=== PATIENT | male | born 1960 | race Caucasian/White ===

== ENCOUNTER 2016-11-24 21:57 | Inpatient (IN) | payer MEDICARE ==
[~2016-11-24] VITALS: Ht 172.7 cm; Wt 76.6 kg
[~2016-11-24 21:57] MED LIST: ALPR0.25 PO; AMLO10TA2 PO; AMLO2.5T2 PO; ASPI-621 PO; ASPI-624 PO; ATOR10TA PO; ATOR20TA PO; ATOR20TA9 PO; Amitriptyline Hcl PO; CALC667C PO; CALC667C3 PO; CARV-39 PO; CLOP75TA22 PO; DIAZ10TA4 PO; DIAZ5TAB PO; DIAZ5TAB4 PO; ERGO500017 PO; FURO40TA6 PO; GABA100C PO; GABA300C PO; HYDR-3341 PO; HYDR-3343 PO; INSU100C SQ-INSULIN; INSU100V8 SQ; IPRA3AMP NPPB; LISI-170 PO; LOSA50TA2 PO; METO-95 PO; METO1TAB6 PO; METO50TA82 PO; MINOXIDIL PO; MIRT15TA PO; NICO1PAT4 TD; OXYC-229 PO; OXYC-302 PO; OXYC10TA6 PO; Oxycodone Hcl PO; PANT40TA3 PO; SEVE800T PO; TEMA15CA6 PO; TIOT18CA INH; TRAM-28 PO; TRAM50TA2 PO
[2016-11-24 22:51] LABS: ASPARTATE AMINO TRANSFERASE 24 U/L (15-37); BLOOD UREA NITROGEN 53 mg/dL (7-18)
[2016-11-24] MEDS ORDERED: CEFTAROLINE 600 MG in SODIUM CHLORIDE 0.9% 100 ML IV ONE (23:00)
[2016-11-24] MEDS ORDERED: ONDANSETRON 2MG/ML, 2ML ONE (23:23)
[2016-11-24] MEDS ORDERED: MORPHINE SULFATE 4 MG/ML, 1ML ONE (23:23)
[2016-11-24] MEDS ORDERED: SODIUM CHLORIDE 0.9% 1,000ML IVBOLUS ONE (23:30)
[2016-11-24] MEDS ORDERED: MORPHINE SULFATE 4 MG/ML, 1ML IVPush PRN (23:30)
[2016-11-24] MEDS ORDERED: ONDANSETRON 2MG/ML, 2ML IVPush ONE (23:30)
[2016-11-24] MEDS ORDERED: SODIUM CHLORIDE 0.9% 1,000 ML IV ONE (23:46)
[2016-11-25] MEDS ORDERED: ONDANSETRON 2MG/ML, 2ML IVPush PRN
[2016-11-25] MEDS ORDERED: MORPHINE SULFATE 4 MG/ML, 1ML IVPush PRN
[2016-11-25] MEDS ORDERED: ERGOCALCIFEROL 50,000 UNIT CAPSULE PO SCH (01:00)
[2016-11-25] MEDS ORDERED: BISACODYL 10 MG SUPP PR PRN (01:00)
[2016-11-25] MEDS ORDERED: POLYETHYLENE GLYCOL 17 GM PACKET PO PRN (01:00)
[2016-11-25] MEDS: NICOTINE 21 MG/24 HR PATCH.TD24 TD SCH (01:00)
[2016-11-25] MEDS ORDERED: TEMPLATE NON-FORMULARY MED. (Insulin Lispro** (Humalog**) 0 UNITS) SQ-INSULIN SCH (01:00)
[2016-11-25] MEDS ORDERED: ONDANSETRON 2MG/ML, 2ML IVP PRN (01:00)
[2016-11-25] MEDS: HEPARIN 5,000 UNITS/ML, 1ML SQ SCH ×4 (01:00→17:00)
[2016-11-25 01:30] VITALS: BP 158/75
[2016-11-25] MEDS: MORPHINE SULFATE 4 MG/ML, 1ML IVPush PRN ×5 (01:31→20:55)
[2016-11-25] MEDS: CALCIUM ACETATE 667 MG CAPSULE PO SCH ×4 (04:25→21:35)
[2016-11-25] MEDS: ATORVASTATIN 10 MG TABLET PO SCH ×2 (04:25→21:36)
[2016-11-25 06:34] VITALS: BP 133/68
[2016-11-25 06:56] LABS: ASPARTATE AMINO TRANSFERASE 18 U/L (15-37); BLOOD UREA NITROGEN 58 mg/dL (7-18)
[2016-11-25] MEDS: INSULIN ASPART 100 UNITS/ML, 3ML PEN MEDIUM DOSE SS SQ-INSULIN SCH ×4 (07:00→21:36)
[2016-11-25] MEDS: SODIUM CHLORIDE FLUSH 10ML SYR IVF SCH ×2 (07:53→20:56)
[2016-11-25] MEDS: SENNA/DOCUSATE TABLET PO SCH (07:55)
[2016-11-25] MEDS: GABAPENTIN 100 MG CAPSULE PO SCH ×2 (07:55→21:35)
[2016-11-25] MEDS: DIAZEPAM 5 MG TABLET PO SCH (08:04)
[2016-11-25] MEDS: ASPIRIN 81 MG TABLET EC PO SCH (08:06)
[2016-11-25] MEDS ORDERED: INSULIN DETEMIR 100 UNITS/ML, PEN SQ-INSULIN SCH (09:00)
[2016-11-25] MEDS: METOPROLOL TARTRATE 50 MG TABLET PO SCH ×2 (09:00→21:36)
[2016-11-25] MEDS: AMLODIPINE 5 MG TABLET PO SCH (09:00)
[2016-11-25] MEDS ORDERED: ARANESP 100 MCG/ML **ESRD SQ SCH (11:30)
[2016-11-25 12:05] VITALS: BP 147/71
[2016-11-25] MEDS: ACETAMINOPHEN 325 MG TABLET PO PRN (14:57)
[2016-11-25] MEDS: CEFTAROLINE 200 MG in SODIUM CHLORIDE 0.9% 100 ML IV SCH (17:34)
[2016-11-25] MEDS: MUPIROCIN OINT 2%, 22GM TP SCH (18:00)
[2016-11-25 19:55] VITALS: BP 153/65
[2016-11-26] MEDS: CEFTAROLINE 200 MG in SODIUM CHLORIDE 0.9% 100 ML IV SCH (00:47)
[2016-11-26] MEDS: HEPARIN 5,000 UNITS/ML, 1ML SQ SCH ×3 (00:48→16:55)
[2016-11-26] MEDS: NICOTINE 21 MG/24 HR PATCH.TD24 TD SCH (00:48)
[2016-11-26 01:15] VITALS: BP 164/68
[2016-11-26] MEDS: MORPHINE SULFATE 4 MG/ML, 1ML IVPush PRN (03:16)
[2016-11-26] MEDS: ASPIRIN 81 MG TABLET EC PO SCH (06:01)
[2016-11-26] MEDS: MUPIROCIN OINT 2%, 22GM TP SCH ×2 (06:01→18:36)
[2016-11-26] MEDS: HYDROcodone/APAP 5/325 TABLET PO PRN ×2 (06:08→22:38)
[2016-11-26 06:15] LABS: BLOOD UREA NITROGEN 32 mg/dL (7-18)
[2016-11-26 06:51] LABS: DIFF TOTAL CELLS COUNTED 100 CELL DIFF
[2016-11-26 06:53] VITALS: BP 112/65
[2016-11-26 06:54] LABS: VERIFY COUNTS? YES
[2016-11-26 06:56] LABS: ANISOCYTOSIS 1+
[2016-11-26] MEDS: INSULIN ASPART 100 UNITS/ML, 3ML PEN MEDIUM DOSE SS SQ-INSULIN SCH ×4 (08:16→20:56)
[2016-11-26] MEDS: SODIUM CHLORIDE FLUSH 10ML SYR IVF SCH ×2 (09:05→20:56)
[2016-11-26] MEDS: AMLODIPINE 5 MG TABLET PO SCH (09:06)
[2016-11-26] MEDS: METOPROLOL TARTRATE 50 MG TABLET PO SCH ×2 (09:06→20:50)
[2016-11-26] MEDS: GABAPENTIN 100 MG CAPSULE PO SCH ×2 (09:06→20:50)
[2016-11-26] MEDS: CALCIUM ACETATE 667 MG CAPSULE PO SCH ×3 (09:06→20:50)
[2016-11-26] MEDS: SENNA/DOCUSATE TABLET PO SCH (09:07)
[2016-11-26] MEDS: DIAZEPAM 5 MG TABLET PO SCH (10:25)
[2016-11-26 14:14] VITALS: BP 116/70
[2016-11-26] MEDS: AMPICILLIN/SULBACTAM 3 GM in SODIUM CHLORIDE 0.9% 100 ML IV SCH ×2 (16:55→22:37)
[2016-11-26 19:58] VITALS: BP 117/59
[2016-11-26] MEDS: ACETAMINOPHEN 325 MG TABLET PO PRN (20:50)
[2016-11-26] MEDS: ATORVASTATIN 10 MG TABLET PO SCH (20:50)
[2016-11-27 00:49] VITALS: BP 110/56
[2016-11-27] MEDS: HEPARIN 5,000 UNITS/ML, 1ML SQ SCH ×3 (05:08→22:00)
[2016-11-27] MEDS: AMPICILLIN/SULBACTAM 3 GM in SODIUM CHLORIDE 0.9% 100 ML IV SCH ×2 (05:08→14:00)
[2016-11-27] MEDS: NICOTINE 21 MG/24 HR PATCH.TD24 TD SCH (05:12)
[2016-11-27] MEDS: MORPHINE SULFATE 4 MG/ML, 1ML IVPush PRN ×2 (05:18→15:45)
[2016-11-27 05:44] LABS: BLOOD UREA NITROGEN 45 mg/dL (7-18)
[2016-11-27] MEDS: ASPIRIN 81 MG TABLET EC PO SCH (06:02)
[2016-11-27] MEDS: MUPIROCIN OINT 2%, 22GM TP SCH ×2 (06:02→18:42)
[2016-11-27 07:30] VITALS: BP 99/49
[2016-11-27] MEDS: METOPROLOL TARTRATE 50 MG TABLET PO SCH ×2 (09:00→20:01)
[2016-11-27] MEDS: SENNA/DOCUSATE TABLET PO SCH (09:00)
[2016-11-27] MEDS: AMLODIPINE 5 MG TABLET PO SCH (09:00)
[2016-11-27] MEDS: DIAZEPAM 5 MG TABLET PO SCH (09:54)
[2016-11-27] MEDS: INSULIN ASPART 100 UNITS/ML, 3ML PEN MEDIUM DOSE SS SQ-INSULIN SCH ×4 (10:00→20:09)
[2016-11-27] MEDS: INSULIN DETEMIR 100 UNITS/ML, PEN SQ-INSULIN SCH (10:01)
[2016-11-27] MEDS: SODIUM CHLORIDE FLUSH 10ML SYR IVF SCH ×2 (10:01→20:02)
[2016-11-27] MEDS: GABAPENTIN 100 MG CAPSULE PO SCH ×3 (10:01→20:01)
[2016-11-27] MEDS: CALCIUM ACETATE 667 MG CAPSULE PO SCH ×3 (10:01→20:01)
[2016-11-27] MEDS: HYDROcodone/APAP 5/325 TABLET PO PRN ×2 (11:53→20:01)
[2016-11-27 14:45] VITALS: BP 97/49
[2016-11-27 15:50] VITALS: BP 110/54
[2016-11-27 19:07] VITALS: BP 135/66
[2016-11-27] MEDS: ATORVASTATIN 10 MG TABLET PO SCH (20:01)
[2016-11-28 01:57] VITALS: BP 126/56
[2016-11-28] MEDS: HYDROcodone/APAP 5/325 TABLET PO PRN ×3 (02:45→20:09)
[2016-11-28] MEDS: ASPIRIN 81 MG TABLET EC PO SCH (05:21)
[2016-11-28] MEDS: HEPARIN 5,000 UNITS/ML, 1ML SQ SCH ×2 (05:21→17:09)
[2016-11-28] MEDS: MUPIROCIN OINT 2%, 22GM TP SCH ×2 (05:21→17:09)
[2016-11-28] MEDS: NICOTINE 21 MG/24 HR PATCH.TD24 TD SCH (05:21)
[2016-11-28 06:41] LABS: BLOOD UREA NITROGEN 36 mg/dL (7-18)
[2016-11-28] MEDS: INSULIN ASPART 100 UNITS/ML, 3ML PEN MEDIUM DOSE SS SQ-INSULIN SCH ×4 (07:00→19:51)
[2016-11-28 07:59] VITALS: BP 152/66
[2016-11-28] MEDS: SENNA/DOCUSATE TABLET PO SCH (09:00)
[2016-11-28] MEDS: INSULIN DETEMIR 100 UNITS/ML, PEN SQ-INSULIN SCH (09:00)
[2016-11-28] MEDS: DIAZEPAM 5 MG TABLET PO SCH (09:22)
[2016-11-28] MEDS: AMLODIPINE 5 MG TABLET PO SCH (09:23)
[2016-11-28] MEDS: CALCIUM ACETATE 667 MG CAPSULE PO SCH ×3 (09:23→20:08)
[2016-11-28] MEDS: METOPROLOL TARTRATE 50 MG TABLET PO SCH ×2 (09:23→20:09)
[2016-11-28] MEDS: GABAPENTIN 100 MG CAPSULE PO SCH ×3 (09:24→20:08)
[2016-11-28] MEDS: SODIUM CHLORIDE FLUSH 10ML SYR IVF SCH ×2 (09:27→20:08)
[2016-11-28 10:59] LABS: HEP B SURF. AB 217.6 mIU/mL (0.0-10.0)
[2016-11-28] MEDS: MORPHINE SULFATE 4 MG/ML, 1ML IVPush PRN ×4 (11:18→23:32)
[2016-11-28 13:34] VITALS: BP 115/56
[2016-11-28] MEDS ORDERED: AMPICILLIN/SULBACTAM 3 GM in SODIUM CHLORIDE 0.9% 100 ML IV SCH ×2 (14:00→14:56)
[2016-11-28] MEDS: ATORVASTATIN 10 MG TABLET PO SCH (20:09)
[2016-11-28 20:31] VITALS: BP 160/70
[2016-11-29 01:50] VITALS: BP 127/65
[2016-11-29] MEDS: HEPARIN 5,000 UNITS/ML, 1ML SQ SCH ×2 (03:07→09:00)
[2016-11-29] MEDS: HYDROcodone/APAP 5/325 TABLET PO PRN ×2 (03:07→12:05)
[2016-11-29] MEDS: ASPIRIN 81 MG TABLET EC PO SCH (05:05)
[2016-11-29] MEDS: MUPIROCIN OINT 2%, 22GM TP SCH (05:05)
[2016-11-29] MEDS: NICOTINE 21 MG/24 HR PATCH.TD24 TD SCH (05:05)
[2016-11-29 06:45] VITALS: BP 130/62
[2016-11-29] MEDS: INSULIN ASPART 100 UNITS/ML, 3ML PEN MEDIUM DOSE SS SQ-INSULIN SCH (07:00)
[2016-11-29] MEDS: AMLODIPINE 5 MG TABLET PO SCH (09:00)
[2016-11-29] MEDS: INSULIN DETEMIR 100 UNITS/ML, PEN SQ-INSULIN SCH (09:00)
[2016-11-29] MEDS: CALCIUM ACETATE 667 MG CAPSULE PO SCH (09:00)
[2016-11-29] MEDS: SENNA/DOCUSATE TABLET PO SCH (09:00)
[2016-11-29] MEDS: SODIUM CHLORIDE FLUSH 10ML SYR IVF SCH (09:00)
[2016-11-29] MEDS: GABAPENTIN 100 MG CAPSULE PO SCH (09:00)
[2016-11-29] MEDS: METOPROLOL TARTRATE 50 MG TABLET PO SCH (09:00)
[2016-11-29] MEDS ORDERED: AMPI3VIA IV (09:56)
== END 2016-11-29 12:10 | DRG 871 ==
LOC: ED 22:25 → EDIP 23:46 → 4WST 11-25 00:39
PROVIDERS: ADMIT Internal Medicine; ATTEND Internal Medicine
PROC: 5A1D60Z (ICD-10-PCS; principal; 2016-11-25)
DX: A41.9 Sepsis, unspecified organism (principal); N18.6 End stage renal disease; L03.115 Cellulitis of right lower limb; J96.10 Chronic respiratory failure, unspecified whether with hypoxia or hypercapnia; E44.0 Moderate protein-calorie malnutrition; E87.1 Hypo-osmolality and hyponatremia; I13.2 Hypertensive heart and chronic kidney disease with heart failure and with stage 5 chronic kidney disease, or end stage renal disease; D64.9 Anemia, unspecified; E11.22 Type 2 diabetes mellitus with diabetic chronic kidney disease; E11.42 Type 2 diabetes mellitus with diabetic polyneuropathy; E78.5 Hyperlipidemia, unspecified; F17.200 Nicotine dependence, unspecified, uncomplicated; F41.1 Generalized anxiety disorder; I25.10 Atherosclerotic heart disease of native coronary artery without angina pectoris; I50.9 Heart failure, unspecified; B95.0 Streptococcus, group A, as the cause of diseases classified elsewhere; J44.9 Chronic obstructive pulmonary disease, unspecified; R62.7 Adult failure to thrive; E04.1 Nontoxic single thyroid nodule; G89.29 Other chronic pain; M19.90 Unspecified osteoarthritis, unspecified site; R26.2 Difficulty in walking, not elsewhere classified; Z79.4 Long term (current) use of insulin; Z80.1 Family history of malignant neoplasm of trachea, bronchus and lung; Z86.73 Personal history of transient ischemic attack (TIA), and cerebral infarction without residual deficits; Z91.14 Patient's other noncompliance with medication regimen; Z99.2 Dependence on renal dialysis; Z68.25 Body mass index [BMI] 25.0-25.9, adult; Z88.7 Allergy status to serum and vaccine; Z98.49 Cataract extraction status, unspecified eye; Z89.419 Acquired absence of unspecified great toe; Z82.3 Family history of stroke; Z79.82 Long term (current) use of aspirin; Z79.899 Other long term (current) drug therapy; Z87.01 Personal history of pneumonia (recurrent)
CPT/HCPCS: 36415; 71010; 80048; 80053; 82962; 83036; 83605; 83735; 84145; 85025; 86704; 86706; 87040; 87147; 87181; 87340; 93922; 96365; 96375; J0295; J0712; J0882; J1644; J1815; J2405; J7030

== ENCOUNTER 2017-01-11 23:38 | Emergency (ER) | payer MEDICARE ==
[~2017-01-11] VITALS: Ht 172.7 cm; Wt 74.0 kg
[~2017-01-11 23:38] MED LIST changes: +AMPI3VIA IV
[2017-01-12] MEDS ORDERED: GABAPENTIN 300 MG CAPSULE PO ONE
[2017-01-12] MEDS ORDERED: OXYcodone/APAP 10/325MG TABLET PO ONE
[2017-01-12] MEDS ORDERED: OXYC10TA6 PO (00:08)
[2017-01-12] MEDS ORDERED: OXYcodone/APAP 10/325MG TABLET ONE (00:09)
[2017-01-12 00:20] LABS: BLOOD UREA NITROGEN 31 mg/dL (7-18)
[2017-01-12 01:17] VITALS: BP 198/84
== END 2017-01-12 01:39 | disposition home or self-care (01) ==
LOC: ED 01-12 01:21
DX: E11.40 Type 2 diabetes mellitus with diabetic neuropathy, unspecified (principal); I11.0 Hypertensive heart disease with heart failure; J44.9 Chronic obstructive pulmonary disease, unspecified; N19 Unspecified kidney failure; M19.90 Unspecified osteoarthritis, unspecified site; Z86.73 Personal history of transient ischemic attack (TIA), and cerebral infarction without residual deficits; Z99.2 Dependence on renal dialysis
CPT/HCPCS: 36415; 80048; 82040; 85025; 99284

== ENCOUNTER 2017-02-02 03:28 | Inpatient (IN) | payer MEDICARE ==
[~2017-02-02] VITALS: Ht 172.7 cm; Wt 70.1 kg
[2017-02-02] MEDS ORDERED: PROPOFOL 100 ML IV PRN (03:40)
[2017-02-02] MEDS: MIDAZOLAM 1 MG/ML, 5ML IVP PRN ×3 (04:27→05:41)
[2017-02-02 04:29] LABS: ABG COLLECTION SITE LEFT BRACHIAL
[2017-02-02 04:43] LABS: ASPARTATE AMINO TRANSFERASE 10 U/L (15-37); BLOOD UREA NITROGEN 51 mg/dL (7-18)
[2017-02-02 04:49] LABS: IS PT STATUS REG ER OR PRE ER? YES
[2017-02-02] MEDS ORDERED: ROCURONIUM 10 MG/ML IVPush ONE (05:00)
[2017-02-02] MEDS ORDERED: MIDAZOLAM 1 MG/ML, 5ML IVP ONE (05:00)
[2017-02-02] MEDS ORDERED: ETOMIDATE 20 MG/10 ML IV ONE (05:00)
[2017-02-02] MEDS ORDERED: PIPERACILLIN/TAZO/PMX 3.375GM 50 ML IVPB ONE (05:00)
[2017-02-02] MEDS ORDERED: SODIUM CHLORIDE 0.9% 1,000ML IVBOLUS ONE (05:00)
[2017-02-02] MEDS ORDERED: PIPERACILLIN/TAZO/PMX 3.375GM 50 ML ONE (05:08)
[2017-02-02] MEDS ORDERED: MIDAZOLAM 1 MG/ML, 5ML ONE ×4 (05:11→15:42)
[2017-02-02] MEDS ORDERED: SODIUM CHLORIDE 0.9% 1,000 ML IV SCH ×2 (05:16→08:30)
[2017-02-02] MEDS ORDERED: ACETAMINOPHEN 325 MG TABLET PO PRN (05:30)
[2017-02-02] MEDS ORDERED: DOCUSATE 100 MG CAPSULE PO PRN ×2 (05:30→20:00)
[2017-02-02] MEDS ORDERED: POLYETHYLENE GLYCOL 17 GM PACKET PO PRN ×2 (05:30→20:00)
[2017-02-02] MEDS ORDERED: ONDANSETRON 2MG/ML, 2ML IVPush PRN (05:30)
[2017-02-02] MEDS ORDERED: ALBUTEROL/IPRATROPIUM 2.5MG/0.5MG, 3 ML ONE (05:31)
[2017-02-02] MEDS ORDERED: MIDAZOLAM 1 MG/ML, 5ML IVPush ONE (06:00)
[2017-02-02] MEDS: methylPREDNISolone SOD SUCC 125 MG/2 ML IVPush SCH ×3 (06:23→16:53)
[2017-02-02] MEDS: CEFTRIAXONE PMX 1GM/50ML 50 ML IV SCH (06:23)
[2017-02-02] MEDS: HEPARIN 5,000 UNITS/ML, 1ML SQ SCH ×3 (06:24→20:40)
[2017-02-02] MEDS ORDERED: ALBUTEROL/IPRATROPIUM 2.5MG/0.5MG, 3 ML NPPB SCH (07:00)
[2017-02-02] MEDS: DOXYCYCLINE 100 MG in DEXTROSE 5% 250 ML IV SCH ×2 (07:16→20:37)
[2017-02-02] MEDS: PROPOFOL 100 ML IV PRN ×4 (07:22→20:39)
[2017-02-02] MEDS: ALBUTEROL/IPRATROPIUM 2.5MG/0.5MG, 3 ML INLINE SCH ×5 (07:35→23:30)
[2017-02-02] MEDS: INSULIN ASPART 100 UNITS/ML, PEN SQ-INSULIN SCH ×4 (08:36→21:10)
[2017-02-02] MEDS: OXYcodone IR 5MG TABLET PO PRN ×2 (08:36→18:22)
[2017-02-02] MEDS: GABAPENTIN 100 MG CAPSULE PO SCH ×2 (08:37→20:41)
[2017-02-02] MEDS: INSULIN DETEMIR 100 UNITS/ML, PEN SQ-INSULIN SCH (08:37)
[2017-02-02] MEDS: DIAZEPAM 5 MG TABLET PO SCH (08:37)
[2017-02-02] MEDS: AMLODIPINE 5 MG TABLET PO SCH (08:38)
[2017-02-02] MEDS: SENNA/DOCUSATE TABLET PO SCH (08:38)
[2017-02-02] MEDS: METOPROLOL TARTRATE 50 MG TABLET PO SCH ×2 (08:38→20:38)
[2017-02-02] MEDS: CALCIUM ACETATE 667 MG CAPSULE PO SCH ×3 (09:00→20:40)
[2017-02-02] MEDS ORDERED: FAMOTIDINE 20 MG/2 ML IVPush SCH (09:00)
[2017-02-02] MEDS: RISPERIDONE 1 MG/ML ORAL SOLN NG SCH ×2 (09:01→20:41)
[2017-02-02] MEDS ORDERED: SENNOSIDES 8.8 MG/5 ML ORAL SOL NG PRN ×2 (11:30→20:00)
[2017-02-02] MEDS ORDERED: FENTANYL PF 100 MCG/2ML IVPush PRN (11:30)
[2017-02-02] MEDS ORDERED: SENNA/DOCUSATE TABLET NG PRN ×2 (11:30→20:00)
[2017-02-02] MEDS ORDERED: LACTULOSE 20 GM/30 ML UDC NG PRN ×2 (11:30→20:00)
[2017-02-02] MEDS ORDERED: BISACODYL 10 MG SUPP PR PRN ×2 (11:30→20:00)
[2017-02-02] MEDS ORDERED: LIDOCAINE-MPF 1%, 2ML ENDO PRN (11:30)
[2017-02-02] MEDS ORDERED: FAMOTIDINE 20 MG/2 ML IV SCH (11:30)
[2017-02-02] MEDS ORDERED: PHARMACY MAY ADJ FOR RENAL FX MC SCH ×2 (11:30→20:00)
[2017-02-02] MEDS ORDERED: ROCURONIUM 10 MG/ML ONE (15:42)
[2017-02-02] MEDS ORDERED: ETOMIDATE 40 MG/20 ML ONE (15:42)
[2017-02-02] MEDS ORDERED: PROPOFOL 10 MG/ML, 20ML ONE (15:42)
[2017-02-02] MEDS: ATORVASTATIN 10 MG TABLET PO SCH (20:38)
[2017-02-02] MEDS: FAMOTIDINE 20 MG/2 ML IVPush SCH (20:40)
[2017-02-02] MEDS: LORazepam 2 MG/ML, 1ML IVPush PRN (20:41)
[2017-02-03] MEDS: methylPREDNISolone SOD SUCC 125 MG/2 ML IVPush SCH ×5 (00:03→22:14)
[2017-02-03] MEDS: OXYcodone IR 5MG TABLET PO PRN (01:31)
[2017-02-03] MEDS: PROPOFOL 100 ML IV PRN ×4 (01:31→22:52)
[2017-02-03] MEDS: ALBUTEROL/IPRATROPIUM 2.5MG/0.5MG, 3 ML INLINE SCH ×7 (03:30→23:30)
[2017-02-03 04:00] VITALS: BP 132/63
[2017-02-03 04:16] LABS: ABG COLLECTION SITE RIGHT RADIAL; COLLATERAL CIRCULATION TESTING NORMAL
[2017-02-03] MEDS: INSULIN ASPART 100 UNITS/ML, PEN SQ-INSULIN SCH ×5 (04:24→22:13)
[2017-02-03 04:32] LABS: BLOOD UREA NITROGEN 34 mg/dL (7-18)
[2017-02-03 04:35] LABS: ASPARTATE AMINO TRANSFERASE 11 U/L (15-37)
[2017-02-03] MEDS: morphine SULFATE 10 MG/ML, 1ML IVPush PRN ×4 (05:11→20:12)
[2017-02-03] MEDS: CEFTRIAXONE PMX 1GM/50ML 50 ML IV SCH (06:18)
[2017-02-03] MEDS: HEPARIN 5,000 UNITS/ML, 1ML SQ SCH ×3 (06:18→22:14)
[2017-02-03] MEDS: DIAZEPAM 5 MG TABLET PO SCH (08:20)
[2017-02-03] MEDS: DOXYCYCLINE 100 MG in DEXTROSE 5% 250 ML IV SCH ×2 (08:20→20:12)
[2017-02-03] MEDS: RISPERIDONE 1 MG/ML ORAL SOLN NG SCH ×2 (08:21→08:46)
[2017-02-03] MEDS: METOPROLOL TARTRATE 50 MG TABLET PO SCH ×2 (08:21→22:15)
[2017-02-03] MEDS: CALCIUM ACETATE 667 MG CAPSULE PO SCH ×3 (08:21→22:14)
[2017-02-03] MEDS: SENNA/DOCUSATE TABLET PO SCH (08:21)
[2017-02-03] MEDS: GABAPENTIN 100 MG CAPSULE PO SCH ×2 (08:21→22:14)
[2017-02-03] MEDS: AMLODIPINE 5 MG TABLET PO SCH (08:21)
[2017-02-03] MEDS: NICOTINE 14MG/24 HR PATCH.TD24 TD SCH (10:50)
[2017-02-03] MEDS ORDERED: hydrALAzine 20 MG/ML, 1ML IV PRN (11:00)
[2017-02-03] MEDS ORDERED: LABETALOL 5MG/ML, 20ML IVPush PRN (11:00)
[2017-02-03] MEDS: INSULIN DETEMIR 100 UNITS/ML, PEN SQ-INSULIN SCH (11:53)
[2017-02-03] MEDS: LORazepam 2 MG/ML, 1ML IVPush PRN (16:53)
[2017-02-03] MEDS: FAMOTIDINE 20 MG/2 ML IVPush SCH (22:14)
[2017-02-03] MEDS: ATORVASTATIN 10 MG TABLET PO SCH (22:15)
[2017-02-04] MEDS: OXYcodone IR 5MG TABLET PO PRN ×4 (00:24→17:54)
[2017-02-04] MEDS: PROPOFOL 100 ML IV PRN ×5 (02:23→19:50)
[2017-02-04] MEDS: ALBUTEROL/IPRATROPIUM 2.5MG/0.5MG, 3 ML INLINE SCH ×5 (02:54→22:40)
[2017-02-04 04:25] LABS: ABG COLLECTION SITE LEFT RADIAL; COLLATERAL CIRCULATION TESTING NORMAL
[2017-02-04 04:37] VITALS: BP 148/69
[2017-02-04 04:39] LABS: BLOOD UREA NITROGEN 41 mg/dL (7-18)
[2017-02-04] MEDS: methylPREDNISolone SOD SUCC 125 MG/2 ML IVPush SCH ×4 (06:37→23:03)
[2017-02-04] MEDS: CEFTRIAXONE PMX 1GM/50ML 50 ML IV SCH (06:37)
[2017-02-04] MEDS: INSULIN ASPART 100 UNITS/ML, PEN SQ-INSULIN SCH ×4 (06:38→23:03)
[2017-02-04] MEDS: DOXYCYCLINE 100 MG in DEXTROSE 5% 250 ML IV SCH (06:42)
[2017-02-04] MEDS: SENNA/DOCUSATE TABLET PO SCH (08:50)
[2017-02-04] MEDS: METOPROLOL TARTRATE 50 MG TABLET PO SCH ×2 (08:50→21:40)
[2017-02-04] MEDS: DIAZEPAM 5 MG TABLET PO SCH (08:51)
[2017-02-04] MEDS: AMLODIPINE 5 MG TABLET PO SCH (08:51)
[2017-02-04] MEDS: CALCIUM ACETATE 667 MG CAPSULE PO SCH ×3 (08:51→21:40)
[2017-02-04] MEDS: GABAPENTIN 100 MG CAPSULE PO SCH ×2 (08:51→21:40)
[2017-02-04] MEDS: NICOTINE 14MG/24 HR PATCH.TD24 TD SCH (08:55)
[2017-02-04] MEDS: HEPARIN 5,000 UNITS/ML, 1ML SQ SCH ×2 (08:55→16:24)
[2017-02-04] MEDS: INSULIN DETEMIR 100 UNITS/ML, PEN SQ-INSULIN SCH (09:02)
[2017-02-04] MEDS: morphine SULFATE 10 MG/ML, 1ML IVPush PRN (13:06)
[2017-02-04] MEDS: MEROPENEM 1 GM in SODIUM CHLORIDE 0.9% 100 ML IV SCH (17:54)
[2017-02-04] MEDS: ATORVASTATIN 10 MG TABLET PO SCH (21:40)
[2017-02-04] MEDS: FAMOTIDINE 20 MG/2 ML IVPush SCH (21:40)
[2017-02-05] MEDS: PROPOFOL 100 ML IV PRN ×4 (01:48→19:59)
[2017-02-05] MEDS: MEROPENEM 1 GM in SODIUM CHLORIDE 0.9% 100 ML IV SCH ×2 (01:52→06:23)
[2017-02-05] MEDS: HEPARIN 5,000 UNITS/ML, 1ML SQ SCH ×3 (01:52→17:09)
[2017-02-05] MEDS: ALBUTEROL/IPRATROPIUM 2.5MG/0.5MG, 3 ML INLINE SCH ×6 (03:30→23:30)
[2017-02-05 04:07] VITALS: BP 115/45
[2017-02-05 04:38] LABS: ABG COLLECTION SITE LEFT RADIAL; COLLATERAL CIRCULATION TESTING NORMAL
[2017-02-05 04:50] LABS: BLOOD UREA NITROGEN 80 mg/dL (7-18)
[2017-02-05] MEDS: INSULIN ASPART 100 UNITS/ML, PEN SQ-INSULIN SCH ×4 (05:32→23:34)
[2017-02-05] MEDS: methylPREDNISolone SOD SUCC 125 MG/2 ML IVPush SCH ×4 (06:20→23:33)
[2017-02-05] MEDS: SENNA/DOCUSATE TABLET PO SCH (09:04)
[2017-02-05] MEDS: AMLODIPINE 5 MG TABLET PO SCH (09:04)
[2017-02-05] MEDS: GABAPENTIN 100 MG CAPSULE PO SCH ×2 (09:04→20:58)
[2017-02-05] MEDS: CALCIUM ACETATE 667 MG CAPSULE PO SCH ×3 (09:04→20:58)
[2017-02-05] MEDS: DIAZEPAM 5 MG TABLET PO SCH (09:04)
[2017-02-05] MEDS: NICOTINE 14MG/24 HR PATCH.TD24 TD SCH (09:04)
[2017-02-05] MEDS: METOPROLOL TARTRATE 50 MG TABLET PO SCH ×2 (09:05→20:58)
[2017-02-05] MEDS: INSULIN DETEMIR 100 UNITS/ML, PEN SQ-INSULIN SCH (09:15)
[2017-02-05] MEDS: MEROPENEM 500 MG in SODIUM CHLORIDE 0.9% 100 ML IV SCH (18:07)
[2017-02-05] MEDS: FAMOTIDINE 20 MG/2 ML IVPush SCH (20:58)
[2017-02-05] MEDS: ATORVASTATIN 10 MG TABLET PO SCH (20:59)
[2017-02-06] MEDS: HEPARIN 5,000 UNITS/ML, 1ML SQ SCH ×3 (02:30→15:55)
[2017-02-06] MEDS: ALBUTEROL/IPRATROPIUM 2.5MG/0.5MG, 3 ML INLINE SCH ×2 (03:30→06:50)
[2017-02-06 04:51] LABS: BLOOD UREA NITROGEN 66 mg/dL (7-18)
[2017-02-06 05:06] LABS: ABG COLLECTION SITE LEFT RADIAL; COLLATERAL CIRCULATION TESTING NORMAL
[2017-02-06] MEDS: INSULIN ASPART 100 UNITS/ML, PEN SQ-INSULIN SCH ×3 (05:26→16:01)
[2017-02-06] MEDS: PROPOFOL 100 ML IV PRN (05:26)
[2017-02-06] MEDS: methylPREDNISolone SOD SUCC 125 MG/2 ML IVPush SCH ×3 (05:28→16:01)
[2017-02-06] MEDS: AMLODIPINE 5 MG TABLET PO SCH (07:39)
[2017-02-06] MEDS: CALCIUM ACETATE 667 MG CAPSULE PO SCH ×2 (07:39→16:00)
[2017-02-06] MEDS: GABAPENTIN 100 MG CAPSULE PO SCH (07:39)
[2017-02-06] MEDS: METOPROLOL TARTRATE 50 MG TABLET PO SCH (07:39)
[2017-02-06] MEDS: SENNA/DOCUSATE TABLET PO SCH (07:39)
[2017-02-06] MEDS: NICOTINE 14MG/24 HR PATCH.TD24 TD SCH (07:40)
[2017-02-06] MEDS: INSULIN DETEMIR 100 UNITS/ML, PEN SQ-INSULIN SCH (07:41)
[2017-02-06] MEDS: DIAZEPAM 5 MG TABLET PO SCH (07:44)
[2017-02-06] MEDS: MEROPENEM 500 MG in SODIUM CHLORIDE 0.9% 100 ML IV SCH (17:32)
== END 2017-02-06 18:20 | disposition left against medical advice (07) | DRG 207 ==
LOC: ED 03:33 → EDIP 04:58 → CCU 06:01
PROVIDERS: ADMIT Family Medicine; ATTEND Family Medicine
PROC: 0T9B70Z Drainage of Bladder with Drainage Device, Via Natural or Artificial Opening (ICD-10-PCS; principal; 2017-02-02)
PROC: 5A1955Z Respiratory Ventilation, Greater than 96 Consecutive Hours (ICD-10-PCS; 2017-02-02)
PROC: 0BH17EZ Insertion of Endotracheal Airway into Trachea, Via Natural or Artificial Opening (ICD-10-PCS; 2017-02-02)
PROC: 5A1D00Z (ICD-10-PCS; 2017-02-06)
DX: J96.21 Acute and chronic respiratory failure with hypoxia (principal); N18.6 End stage renal disease; J18.9 Pneumonia, unspecified organism; I16.9 Hypertensive crisis, unspecified; I13.2 Hypertensive heart and chronic kidney disease with heart failure and with stage 5 chronic kidney disease, or end stage renal disease; E87.1 Hypo-osmolality and hyponatremia; J44.0 Chronic obstructive pulmonary disease with (acute) lower respiratory infection; J44.1 Chronic obstructive pulmonary disease with (acute) exacerbation; I50.22 Chronic systolic (congestive) heart failure; E11.42 Type 2 diabetes mellitus with diabetic polyneuropathy; M19.90 Unspecified osteoarthritis, unspecified site; D63.1 Anemia in chronic kidney disease; E11.319 Type 2 diabetes mellitus with unspecified diabetic retinopathy without macular edema; E11.22 Type 2 diabetes mellitus with diabetic chronic kidney disease; E78.5 Hyperlipidemia, unspecified; G89.29 Other chronic pain; L40.9 Psoriasis, unspecified; E87.5 Hyperkalemia; F17.210 Nicotine dependence, cigarettes, uncomplicated; F41.9 Anxiety disorder, unspecified; I25.10 Atherosclerotic heart disease of native coronary artery without angina pectoris; I35.8 Other nonrheumatic aortic valve disorders; I45.81 Long QT syndrome; E11.51 Type 2 diabetes mellitus with diabetic peripheral angiopathy without gangrene; Z86.73 Personal history of transient ischemic attack (TIA), and cerebral infarction without residual deficits; Z89.429 Acquired absence of other toe(s), unspecified side; Z91.19 Patient's noncompliance with other medical treatment and regimen; Z99.2 Dependence on renal dialysis; Z99.81 Dependence on supplemental oxygen; Z88.7 Allergy status to serum and vaccine; Z89.422 Acquired absence of other left toe(s)
CPT/HCPCS: 31500; 36415; 36600; 71010; 80048; 80053; 81001; 82803; 82962; 83605; 83735; 83880; 84100; 84145; 84478; 84484; 85025; 85610; 85730; 87040; 87070; 87077; 87081; 87086; 87186; 87205; 93005; 94002; 94003; 94150; 94640; 96374; 96375; 96376; J0696; J1644; J1815; J2185; J2250; J2543; J2704; J7060; J7620; C1751; J2060; J2270; J2930; J7030; J7050; S0028

== ENCOUNTER 2017-02-06 18:54 | Inpatient (IN) | payer MEDICARE ==
[~2017-02-06] VITALS: Ht 172.7 cm; Wt 69.5 kg
[2017-02-06] MEDS ORDERED: SODIUM CHLORIDE FLUSH 10ML SYR IVF ONE (19:30)
[2017-02-06 20:32] LABS: ASPARTATE AMINO TRANSFERASE 22 U/L (15-37); BLOOD UREA NITROGEN 58 mg/dL (7-18)
[2017-02-06 20:39] LABS: IS PT STATUS REG ER OR PRE ER? YES
[2017-02-06] MEDS ORDERED: ONDANSETRON 2MG/ML, 2ML IVPush PRN (21:30)
[2017-02-06] MEDS ORDERED: MEROPENEM 1 GM in SODIUM CHLORIDE 0.9% 100 ML IV ONE (21:30)
[2017-02-06] MEDS ORDERED: SODIUM CHLORIDE FLUSH 10ML SYR IVF PRN (21:30)
[2017-02-06] MEDS ORDERED: BISACODYL 10 MG SUPP PR PRN (21:30)
[2017-02-06] MEDS ORDERED: TEMPLATE NON-FORMULARY MED. (Insulin Lispro** (Humalog**) 0 UNITS) SQ-INSULIN SCH (21:30)
[2017-02-06] MEDS ORDERED: POLYETHYLENE GLYCOL 17 GM PACKET PO PRN (21:30)
[2017-02-06] MEDS: GABAPENTIN 100 MG CAPSULE PO SCH (22:04)
[2017-02-06] MEDS: CALCIUM ACETATE 667 MG CAPSULE PO SCH (22:47)
[2017-02-06] MEDS: ATORVASTATIN 10 MG TABLET PO SCH (22:47)
[2017-02-06 23:30] VITALS: BP 106/68
[2017-02-07] MEDS: INSULIN ASPART 100 UNITS/ML, PEN SQ-INSULIN SCH ×5 (00:10→21:40)
[2017-02-07] MEDS: SODIUM CHLORIDE FLUSH 10ML SYR IVF SCH ×3 (00:11→21:44)
[2017-02-07] MEDS: HEPARIN 5,000 UNITS/ML, 1ML SQ SCH ×3 (00:17→16:57)
[2017-02-07] MEDS: OXYcodone IR 5MG TABLET PO SCH ×3 (00:18→10:00)
[2017-02-07] MEDS: METOPROLOL TARTRATE 50 MG TABLET PO SCH ×3 (00:22→20:45)
[2017-02-07 02:53] VITALS: BP 196/78
[2017-02-07] MEDS ORDERED: hydrALAzine 20 MG/ML, 1ML ONE (03:18)
[2017-02-07] MEDS ORDERED: hydrALAzine 20 MG/ML, 1ML IV PRN (03:30)
[2017-02-07 04:00] VITALS: BP 83/56
[2017-02-07] MEDS ORDERED: METOPROLOL TARTRATE 50 MG TABLET PO ONE (04:00)
[2017-02-07 05:35] LABS: BLOOD UREA NITROGEN 75 mg/dL (7-18)
[2017-02-07 05:39] LABS: ASPARTATE AMINO TRANSFERASE 11 U/L (15-37)
[2017-02-07 06:40] VITALS: BP 73/47
[2017-02-07 06:46] VITALS: BP_SYST 102; BP_SYST 90; BP_DIAS 52; BP_DIAS 71
[2017-02-07] MEDS: AMLODIPINE 5 MG TABLET PO SCH (08:14)
[2017-02-07] MEDS ORDERED: SODIUM CHLORIDE 0.9%, 500ML IVBOLUS ONE ×2 (08:30→12:00)
[2017-02-07] MEDS: DIAZEPAM 5 MG TABLET PO SCH (08:38)
[2017-02-07] MEDS: GABAPENTIN 100 MG CAPSULE PO SCH ×2 (08:40→21:41)
[2017-02-07] MEDS: CALCIUM ACETATE 667 MG CAPSULE PO SCH ×3 (08:40→21:41)
[2017-02-07] MEDS: SENNA/DOCUSATE TABLET PO SCH (08:42)
[2017-02-07] MEDS: INSULIN DETEMIR 100 UNITS/ML, PEN SQ-INSULIN SCH (08:42)
[2017-02-07] MEDS: MEROPENEM 1 GM in SODIUM CHLORIDE 0.9% 100 ML IV SCH ×2 (10:23→21:40)
[2017-02-07 11:35] VITALS: BP 75/48
[2017-02-07 13:52] VITALS: BP 74/46
[2017-02-07] MEDS: ACETAMINOPHEN 325 MG TABLET PO PRN (14:21)
[2017-02-07] MEDS: NOREPINEPHRINE 4 MG in SODIUM CHLORIDE 0.9% 246 ML IV PRN ×2 (16:23→22:25)
[2017-02-07] MEDS: OXYcodone IR 5MG TABLET PO PRN (19:35)
[2017-02-07] MEDS: ATORVASTATIN 10 MG TABLET PO SCH (21:41)
[2017-02-08] MEDS: HEPARIN 5,000 UNITS/ML, 1ML SQ SCH ×3 (00:07→16:00)
[2017-02-08] MEDS: OXYcodone IR 5MG TABLET PO PRN ×2 (00:14→05:28)
[2017-02-08 01:05] VITALS: BP 130/70
[2017-02-08] MEDS: NOREPINEPHRINE 4 MG in SODIUM CHLORIDE 0.9% 246 ML IV PRN ×2 (04:07→16:17)
[2017-02-08 04:36] LABS: BLOOD UREA NITROGEN 54 mg/dL (7-18)
[2017-02-08] MEDS: AMLODIPINE 5 MG TABLET PO SCH (07:47)
[2017-02-08] MEDS: METOPROLOL TARTRATE 50 MG TABLET PO SCH ×2 (07:47→21:00)
[2017-02-08] MEDS: SENNA/DOCUSATE TABLET PO SCH (07:55)
[2017-02-08] MEDS: DIAZEPAM 5 MG TABLET PO SCH (07:55)
[2017-02-08] MEDS: GABAPENTIN 100 MG CAPSULE PO SCH (07:55)
[2017-02-08] MEDS: INSULIN DETEMIR 100 UNITS/ML, PEN SQ-INSULIN SCH (07:56)
[2017-02-08] MEDS: CALCIUM ACETATE 667 MG CAPSULE PO SCH ×3 (07:56→21:13)
[2017-02-08] MEDS: SODIUM CHLORIDE FLUSH 10ML SYR IVF SCH ×2 (07:56→21:10)
[2017-02-08] MEDS: INSULIN ASPART 100 UNITS/ML, PEN SQ-INSULIN SCH ×4 (07:56→21:07)
[2017-02-08] MEDS ORDERED: DIAZEPAM 5 MG TABLET PO PRN (08:42)
[2017-02-08] MEDS: MEROPENEM 1 GM in SODIUM CHLORIDE 0.9% 100 ML IV SCH (09:40)
[2017-02-08] MEDS: MEROPENEM 500 MG in SODIUM CHLORIDE 0.9% 100 ML IV SCH (10:49)
[2017-02-08] MEDS: ACETAMINOPHEN 325 MG TABLET PO PRN ×3 (11:56→21:02)
[2017-02-09] MEDS: MEROPENEM 500 MG in SODIUM CHLORIDE 0.9% 100 ML IV SCH (00:35)
[2017-02-09] MEDS: ATORVASTATIN 10 MG TABLET PO SCH (00:35)
[2017-02-09] MEDS: HEPARIN 5,000 UNITS/ML, 1ML SQ SCH ×2 (00:36→08:00)
[2017-02-09] MEDS: GABAPENTIN 100 MG CAPSULE PO SCH ×2 (00:36→08:14)
[2017-02-09] MEDS: ACETAMINOPHEN 325 MG TABLET PO PRN ×2 (01:55→06:31)
[2017-02-09] MEDS: NOREPINEPHRINE 4 MG in SODIUM CHLORIDE 0.9% 246 ML IV PRN (02:40)
[2017-02-09 06:32] LABS: ASPARTATE AMINO TRANSFERASE 19 U/L (15-37); BLOOD UREA NITROGEN 44 mg/dL (7-18)
[2017-02-09] MEDS: INSULIN ASPART 100 UNITS/ML, PEN SQ-INSULIN SCH ×2 (07:00→11:00)
[2017-02-09] MEDS: SODIUM CHLORIDE FLUSH 10ML SYR IVF SCH (08:13)
[2017-02-09] MEDS: METOPROLOL TARTRATE 50 MG TABLET PO SCH (08:14)
[2017-02-09] MEDS: AMLODIPINE 5 MG TABLET PO SCH (08:22)
[2017-02-09] MEDS: CALCIUM ACETATE 667 MG CAPSULE PO SCH (08:22)
[2017-02-09] MEDS: SENNA/DOCUSATE TABLET PO SCH (08:22)
[2017-02-09] MEDS: INSULIN DETEMIR 100 UNITS/ML, PEN SQ-INSULIN SCH (08:23)
== END 2017-02-09 11:44 | disposition hospice, home (50) | DRG 177 ==
LOC: ED 21:04 → EDIP 21:05 → ED 21:08 → 5SO 23:01 → CCU 02-07 15:39
PROVIDERS: ADMIT Internal Medicine; ATTEND Internal Medicine
PROC: 02HV33Z Insertion of Infusion Device into Superior Vena Cava, Percutaneous Approach (ICD-10-PCS; principal; 2017-02-07)
PROC: B548ZZA Ultrasonography of Superior Vena Cava, Guidance (ICD-10-PCS; 2017-02-07)
PROC: 5A1D60Z (ICD-10-PCS; 2017-02-07)
DX: J15.5 Pneumonia due to Escherichia coli (principal); J96.21 Acute and chronic respiratory failure with hypoxia; N18.6 End stage renal disease; J44.0 Chronic obstructive pulmonary disease with (acute) lower respiratory infection; E87.1 Hypo-osmolality and hyponatremia; I13.2 Hypertensive heart and chronic kidney disease with heart failure and with stage 5 chronic kidney disease, or end stage renal disease; I16.9 Hypertensive crisis, unspecified; I50.32 Chronic diastolic (congestive) heart failure; J44.1 Chronic obstructive pulmonary disease with (acute) exacerbation; I25.10 Atherosclerotic heart disease of native coronary artery without angina pectoris; D63.1 Anemia in chronic kidney disease; E11.22 Type 2 diabetes mellitus with diabetic chronic kidney disease; E11.42 Type 2 diabetes mellitus with diabetic polyneuropathy; E78.5 Hyperlipidemia, unspecified; E87.5 Hyperkalemia; F41.9 Anxiety disorder, unspecified; I73.9 Peripheral vascular disease, unspecified; M19.90 Unspecified osteoarthritis, unspecified site; Z16.12 Extended spectrum beta lactamase (ESBL) resistance; Z79.4 Long term (current) use of insulin; Z91.19 Patient's noncompliance with other medical treatment and regimen; Z99.2 Dependence on renal dialysis; Z86.73 Personal history of transient ischemic attack (TIA), and cerebral infarction without residual deficits; Z88.7 Allergy status to serum and vaccine; Z82.49 Family history of ischemic heart disease and other diseases of the circulatory system; Z80.1 Family history of malignant neoplasm of trachea, bronchus and lung
CPT/HCPCS: 36415; 36569; 71010; 76937; 77001; 80048; 80053; 82962; 83735; 83880; 84100; 84484; 85025; 87081; 93005; 99285; J1644; J1815; J2185; J2405; C1751; J0360; J7040; J7050